=== PATIENT | male | born 1990 | race Caucasian/White ===

== ENCOUNTER 2016-08-13 11:37 | Emergency (ER) | payer SELFPAY ==
[~2016-08-13] VITALS: Wt 72.0 kg
--- NOTE | 2016-08-13 13:24 | RADRPT ---
PROCEDURE: XR Chest. CLINICAL INDICATION: Cough, difficulty breathing TECHNIQUE: A single AP view of the chest was obtained. COMPARISON: None. FINDINGS: No focal airspace opacification, pleural effusion or pneumothorax is seen. The cardiomediastinal si lhouette is within normal limits for size. The osseous structures are unremarkable. IMPRESSION: No radiographic evidence of acute cardiopulmonary disease. RPTAT: HH .Nenita Duarte MD, MD Date Time Electronically viewed and signed by .Nenita Duarte MD, MD on 08/13/2016 13:24 .G/
[2016-08-13] MEDS ORDERED: LORA1TAB54 PO (13:33)
[2016-08-13] MEDS ORDERED: AZIT250T94 PO (13:33)
[2016-08-13] MEDS ORDERED: UDROBDM PO (13:33)
--- NOTE | 2016-08-13 13:36 | ERD ---
ER Documentation Chief Complaint Date/Time DATE: 08/13/16 TIME: 13:35 Chief Complaint COUGH FOR 3 DAYS. DRY NON PRODUCTIVE. MILD WHEEZING TO LEFT SIDE. HPI 25-year-old male presents the emergency room clinic of a nonproductive cough for the last 3 days. Patient denies fevers, chills, sputum production, hemoptysis. He denies any significant wheezing but began having chest discomfort in the left side of his chest over the last 3 days. ROS All systems reviewed and are negative except as per history of present illness. Medications Home Meds Active Scripts Guaifenesin-Dextromethorphan* (Robitussin* DM) 100MG/10MG/5ML Syrup, 5 ML PO QID , #20 ML Prov:CAMPOS RICHARDSON 08/13/16 Loratadine/Pseudoephedrine* (Claritin-D* 12 Hr) 5-120 Mg Tab.er.12h, 1 TAB PO Q12, #60 TAB.SA Prov:CAMPOS RICHARDSON 08/13/16 Azithromycin* (Zithromax*) 250 Mg Tablet, 250 MG PO .ZPACK DIRECTED, #6 TAB TAKE 500 MG (2 TABS) THE FIRST DAY THEN 250 MG (1 TAB) DAYS 2-5 Prov:CAMPOS RICHARDSON 08/13/16 PMhx/Soc Medical and Surgical Hx: pt denies Medical Hx, pt denies Surgical Hx Hx Alcohol Use: Yes Hx Substance Use: Yes Hx Tobacco Use: No Smoking Status: Never smoker FmHx Noncontributory for chief complaint Physical Exam Vitals Vital Signs Date Time Temp Pulse Resp B/P Pulse Ox O2 Delivery O2 Flow Rate FiO2 08/13/16 11:41 98.5 99 20 122/62 99 Physical Exam GENERAL: The patient is well developed and appropriate for usual state of health in no apparent distress HEENT: Pupils equal, round, and reactive to light. EOMI. There is no scleral icterus. NECK: C-spine is soft and supple, there is no meningismus. There is no cervical lymphadenopathy. LUNGS: Clear to auscultation bilaterally. There are no rales, wheezes or rhonchi. HEART: Regular rate and rhythm, no murmurs, clicks, rubs or gallops. Procedures/MDM Patient was taken to a room, seen and examined Medical decision makin-year-old otherwise healthy male presents with what appears to be a simple bronchitis. Chest x-ray shows no sign of pneumonia. At this time, patient shows no evidence of respiratory distress and appears to be clinically appropriate for outpatient care. Departure Diagnosis: Primary Impression: Bronchitis Condition: Stable Patient Instructions: Bronchitis, Antiobiotic Treatment (Adult) Additional Instructions: Please see your doctor if not improved in the next 2-3 days CAMPOS RICHARDSON Aug 13, 2016 13:36
[2016-08-13 14:06] VITALS: BP 120/62; PULSE 89; RESP 20; TEMP 98.5
== END 2016-08-13 14:07 | disposition home or self-care (01) ==
LOC: FTE 11:37
DX: J20.9 Acute bronchitis, unspecified (principal)
CPT/HCPCS: 71010